=== PATIENT | female | born 1975 | race African-American/Black ===

== ENCOUNTER → 2016-06-16 | Outpatient (CLI) | payer BC, MEDICARE ==
[2016-06-16 10:07] LABS: Basophils # (A) 0.1 k/uL (0-0.2); Basophils % (A) 1 %; CH 30.4; CHCM 33.8; Eosinophils # (A) 0.1 k/uL (0-0.7); Eosinophils % (A) 2 %; HCT 39.9 % (34.0-46.0); HDW 2.65; HGB 13.5 gm/dL (11.4-16.0); Luc # (Auto) 0.29; Luc % (Auto) 4; Lymphocytes # (A) 3.9 k/uL (1.0-4.8); Lymphocytes % (A) 51 %; MCH 30.6 pg (25.0-35.0); MCHC 33.8 g/dL (31.0-37.0); MCV 90.5 fL (80.0-100.0); Mean Platelet Volume 6.7; Monocytes # (A) 0.4 k/uL (0-1.0); Monocytes % (A) 5 %; Neutrophils # (A) 2.9 k/uL (1.3-7.7); Neutrophils % (A) 38 %; RBC 4.41 m/uL (3.80-5.40); RDW 14.7 % (11.5-15.5); WBC 7.6 k/uL (3.8-10.6); WBC (Perox) 8.07
[2016-06-16 10:19] LABS: ALT 22 U/L (9-52); AST 19 U/L (14-36); Alkaline Phosphatase 53 U/L (38-126); Anion Gap 12 mmol/L; Blood Urea Nitrogen 11 mg/dL (7-17); C Reactive Protein 9.5 mg/L (<10.0); Calcium 9.5 mg/dL (8.4-10.2); Carbon Dioxide 28 mmol/L (22-30); Chloride 103 mmol/L (98-107); Cholesterol 171 mg/dL (<200); Creatine Kinase 173 U/L (30-135); Glucose 93 mg/dL (74-99); HDL Cholesterol 59 mg/dL (40-60); Iron 46 ug/dL (37-170); Non-African American GFR(MDRD) >60 (>60 ml/min/1.73 sqM); Potassium 4.1 mmol/L (3.5-5.1); Sodium 143 mmol/L (137-145); Total Bilirubin 0.3 mg/dL (0.2-1.3); Total Protein 7.4 g/dL (6.3-8.2); Triglycerides 76 mg/dL (<150); Uric Acid 5.4 mg/dL (3.7-7.4)
[2016-06-16 10:26] LABS: % Iron Saturation 11.7 % (20-50); Total Iron Binding Capacity 393 ug/dL (265-497)
[2016-06-16 11:33] LABS: Reactive Lymphocytes Present
[2016-06-16 12:22] LABS: Erythrocyte Sedimentation Rate 12 mm/hr (0-20)
[2016-06-16 12:30] LABS: Hemoglobin A1C 6.3 % (4.2-6.1)
== END | disposition home or self-care (01) ==
LOC: LABWHC1 09:22
DX: K50.00 Crohn's disease of small intestine without complications (principal); E55.9 Vitamin D deficiency, unspecified; I10 Essential (primary) hypertension; E78.00 Pure hypercholesterolemia, unspecified
CPT/HCPCS: 36415; 80053; 80061; 82306; 82550; 82728; 83036; 83540; 83550; 84439; 84443; 84550; 85025; 85652; 86140

== ENCOUNTER → 2016-10-25 | Outpatient (CLI) | payer MEDICARE, BC ==
[2016-10-25 13:37] LABS: Hemoglobin A1C 6.3 % (4.2-6.1)
== END | disposition home or self-care (01) ==
LOC: LABWHC1 11:53
PROVIDERS: ATTEND Psychiatry & Neurology Psychiatry
DX: E55.9 Vitamin D deficiency, unspecified (principal); E11.9 Type 2 diabetes mellitus without complications
CPT/HCPCS: 36415; 82306; 83036

== ENCOUNTER → 2016-11-07 | Outpatient (CLI) | payer MEDICARE, BC ==
--- NOTE | 2016-11-07 13:33 | XR ---
EXAMINATION TYPE: XR thoracic spine complete DATE OF EXAM: 11/07/2016 COMPARISON: NONE HISTORY: Pain Alignment is anatomic. There is no compression deformities. Mild disc space narrowing and hypertroph ic changes are seen.. IMPRESSION: 1. Multilevel mild degenerative disc disease. Consider follow-up MRI.
== END ==
LOC: RAD 13:04
PROVIDERS: ATTEND Internal Medicine
DX: M51.34 Other intervertebral disc degeneration, thoracic region (principal)
CPT/HCPCS: 72072

== ENCOUNTER → 2016-11-30 | Outpatient (CLI) | payer MEDICARE, BC ==
--- NOTE | 2016-11-30 17:25 | MR ---
EXAMINATION TYPE: MR thoracic spine wo con DATE OF EXAM: 11/30/2016 COMPARISON: NONE HISTORY: 41-year-old female with pain, disc degeneration thoracic spine. COMPARISON: Radiographs 11/07/2016. TECHNIQUE: Multiplanar, multisequence images of the thoracic spine were acquired. FINDINGS: Vertebral body heights are preserved and alignment is maintained. No suspicious bone marrow replaceme nt. There is relatively maintained hydration of the intervertebral discs. Very minimal disc bulging may be present such as eccentrically to the left posteriorly at T6-T7 and posteriorly at T11-T12. No larg e focal disc herniation or significant spinal canal stenosis. Scattered mild facet arthropathy is present. This contributes to moderate right neural foraminal sten osis at T11-T12 and mild on the left at T10-T11. Normal course, caliber, and signal intensity of the thoracic cord. Conus medullaris is normal. Small 7 mm T2 hyperintense nodule right lobe of the thyroid gland. No prevertebral or paravertebral soft tissue abnormality seen. IMPRESSION: 1. No vertebral compression collapse or malalignment. 2. Mild facet arthropathy lower thoracic spine. This appears to cause a moderate right neuroforaminal stenosis at T11-T12 and mild on the left at T10-T11. 3. No focal disc herniation or significant spinal canal stenosis.
== END | disposition home or self-care (01) ==
LOC: RADMRIMAIN 15:32
PROVIDERS: ATTEND Internal Medicine
DX: M46.84 Other specified inflammatory spondylopathies, thoracic region (principal)
CPT/HCPCS: 72146

== ENCOUNTER → 2017-01-23 | Outpatient (CLI) | payer BC, MEDICARE, OTHER ==
--- NOTE | 2017-01-25 08:03 | MM ---
Reason for exam: screening (asymptomatic). Last mammogram was performed 1 year and 1 month ago. History: Benign excisional biopsy of the left breast, 1997. Taking hormonal contraceptives for 20 years beginning at age 15. Physical Findings: A clinical breast exam by your physician is recommended on an annual basis and results should be correlated with mammographic findings. MG Screening Mammo w CAD Bilateral CC and MLO view(s) were taken. Prior study comparison: December 29, 2015, bilateral MG 3d screening mammo w/cad. There are scattered fibroglandular densities. No significant changes when compared with prior studies. ASSESSMENT: Negative, BI-RAD 1 RECOMMENDATION: Routine screening mammogram of both breasts in 1 year.
== END | disposition home or self-care (01) ==
LOC: RADMAMWWP 16:51
PROVIDERS: ATTEND Obstetrics & Gynecology
DX: Z12.31 Encounter for screening mammogram for malignant neoplasm of breast (principal)

== ENCOUNTER → 2017-04-03 | Outpatient (CLI) | payer BC, MEDICARE ==
--- NOTE | 2017-04-03 12:08 | XR ---
Left shoulder HISTORY: Left shoulder pain 3 views of the left shoulder There is a distal acromial spur. Hypertrophic change present at the acromioclavicular joint. Left tramaine g apex as visualized is normal. Alignment, bone mineralization are within normal limits. No fracture or dislocation. Mild spurring present at the inferior glenohumeral joint. Small ossific density could represent a loose body measuring 1 mm this level. IMPRESSION: Correlate for impingement. Osteoarthritis and additional findings above.
== END | disposition home or self-care (01) ==
LOC: RADXRMAIN 09:58
PROVIDERS: ATTEND Psychiatry & Neurology Neurology
DX: M19.012 Primary osteoarthritis, left shoulder (principal)

== ENCOUNTER → 2017-06-20 | Outpatient (CLI) | payer BC, MEDICARE ==
[2017-06-20 12:41] LABS: Basophils # (A) 0.1 k/uL (0-0.2); Basophils % (A) 1 %; Eosinophils # (A) 0.2 k/uL (0-0.7); Eosinophils % (A) 3 %; HCT 42.7 % (34.0-46.0); Lymphocytes # (A) 4.1 k/uL (1.0-4.8); Lymphocytes % (A) 46 %; MCH 29.8 pg (25.0-35.0); MCHC 32.8 g/dL (31.0-37.0); MCV 90.9 fL (80.0-100.0); Mean Platelet Volume 6.9; Monocytes # (A) 0.7 k/uL (0-1.0); Monocytes % (A) 7 %; Neutrophils # (A) 3.7 k/uL (1.3-7.7); Neutrophils % (A) 42 %; Platelet Count 303 k/uL (150-450); RDW 14.8 % (11.5-15.5)
[2017-06-20 12:55] LABS: Albumin 4.4 g/dL (3.5-5.0); Calcium 9.9 mg/dL (8.4-10.2); Potassium 3.9 mmol/L (3.5-5.1); Total Bilirubin 0.3 mg/dL (0.2-1.3); Total Protein 7.6 g/dL (6.3-8.2)
[2017-06-20 13:12] LABS: T4, Free (Free Thyroxine) 0.79 ng/dL (0.78-2.19)
[2017-06-20 22:32] LABS: Hemoglobin A1C 6.3 % (4.0-6.0)
== END | disposition home or self-care (01) ==
LOC: LABWHC1 12:00
DX: K50.00 Crohn's disease of small intestine without complications (principal); E03.9 Hypothyroidism, unspecified; E11.9 Type 2 diabetes mellitus without complications
CPT/HCPCS: 36415; 80053; 83036; 84439; 84443; 85025

== ENCOUNTER → 2018-01-11 | Outpatient (CLI) | payer BC, MEDICARE | END | disposition home or self-care (01) | LOC: LABWHC1 10:23 | PROVIDERS: ATTEND Obstetrics & Gynecology | DX: N91.2 Amenorrhea, unspecified (principal) | CPT/HCPCS: 36415; 82670; 83001; 83002 ==

== ENCOUNTER → 2018-01-19 | Outpatient (CLI) | payer BC, MEDICARE ==
[2018-01-19 12:14] LABS: Basophils % (A) 0 %; Eosinophils # (A) 0.1 k/uL (0-0.7); Eosinophils % (A) 2 %; HCT 40.7 % (34.0-46.0); HGB 13.5 gm/dL (11.4-16.0); Lymphocytes # (A) 3.3 k/uL (1.0-4.8); Lymphocytes % (A) 54 %; MCH 30.2 pg (25.0-35.0); MCHC 33.1 g/dL (31.0-37.0); MCV 91.1 fL (80.0-100.0); Mean Platelet Volume 6.5; Monocytes # (A) 0.3 k/uL (0-1.0); Monocytes % (A) 5 %; Neutrophils # (A) 2.2 k/uL (1.3-7.7); Neutrophils % (A) 36 %; Platelet Count 292 k/uL (150-450); RBC 4.47 m/uL (3.80-5.40); RDW 14.6 % (11.5-15.5); WBC 6.1 k/uL (3.8-10.6)
[2018-01-19 12:46] LABS: Appearance,Urine Clear (Clear); Bilirubin,Urine Negative (Negative); Blood,Urine Small (Negative); Color,Urine Yellow; Glucose,Urine (UA) Negative (Negative); Ketones,Urine Negative (Negative); Leukocyte Esterase,Urine Negative (Negative); Mucus,Urine Rare /hpf; Nitrite,Urine Negative (Negative); Protein,Urine Negative (Negative); RBC,Urine 6 /hpf (0-5); Specific Gravity,Urine 1.016 (1.001-1.035); Squamous Epithelial Cell,Urine 2 /hpf (0-4); Urobilinogen,Urine <2.0 mg/dL (<2.0); WBC,Urine 1 /hpf (0-5)
[2018-01-19 19:10] LABS: Iron Saturation 28.57 (12.00-45.00)
[2018-01-19 19:19] LABS: Vitamin D 25 Hydroxy 18.3 ng/mL (30.0-100.0)
[2018-01-19 19:21] LABS: Albumin 4.4 g/dL (3.80-4.90); Albumin/Globulin Ratio 1.69 (1.20-2.10); Anion Gap 7.7 mmol/L (4.00-12.00); Calcium 9.4 mg/dL (8.7-10.3); Carbon Dioxide 26.3 mmol/L (21.6-31.8); Globulin 2.6 g/dL (2.1-3.7); LDL Cholesterol,Calculated 100.4 mg/dL (0.0-131.0); Potassium 3.8 mmol/L (3.5-5.5); Total Bilirubin 0.4 mg/dL (0.3-1.2); Uric Acid 5.6 mg/dL (2.9-7.7); VLDL Calculation 14.6 mg/dL (5.00-40.00)
[2018-01-19 19:29] LABS: T4, Free (Free Thyroxine) 1.1 ng/dL (0.80-1.80)
[2018-01-19 22:43] LABS: Hemoglobin A1C 6.3 % (4.0-6.0)
== END | disposition home or self-care (01) ==
LOC: LABWHC1 11:08
PROVIDERS: ATTEND Internal Medicine
DX: Z00.00 Encounter for general adult medical examination without abnormal findings (principal); E55.9 Vitamin D deficiency, unspecified; I10 Essential (primary) hypertension; E78.00 Pure hypercholesterolemia, unspecified; K50.90 Crohn's disease, unspecified, without complications
CPT/HCPCS: 36415; 80053; 80061; 81001; 82306; 82550; 82728; 83036; 83540; 83550; 83735; 84439; 84443; 84550; 85025

== ENCOUNTER → 2018-02-28 | Outpatient (CLI) | payer OTHER, MEDICARE ==
[2018-02-28 15:21] LABS: Erythrocyte Sedimentation Rate 11 mm/hr (0-20)
[2018-02-28 15:25] LABS: HCT 39.5 % (34.0-46.0); MCH 30.4 pg (25.0-35.0); MCV 92.1 fL (80.0-100.0); Mean Platelet Volume 6.6; Platelet Count 297 k/uL (150-450); RBC 4.28 m/uL (3.80-5.40); RDW 14.8 % (11.5-15.5); WBC 8.8 k/uL (3.8-10.6)
[2018-02-28 19:33] LABS: Vitamin D 25 Hydroxy 28.4 ng/mL (30.0-100.0)
[2018-02-28 19:39] LABS: Albumin 4.4 g/dL (3.80-4.90); Albumin/Globulin Ratio 1.76 (1.20-2.10); Anion Gap 10.4 mmol/L (4.00-12.00); C Reactive Protein 2.2 mg/dL (0.0-0.8); Calcium 9.5 mg/dL (8.7-10.3); Carbon Dioxide 27.6 mmol/L (21.6-31.8); Globulin 2.5 g/dL (2.1-3.7); Potassium 3.5 mmol/L (3.5-5.5); Total Bilirubin 0.4 mg/dL (0.3-1.2); Total Protein 6.9 g/dL (6.2-8.2)
== END | disposition home or self-care (01) ==
LOC: LABWHC1 13:10
DX: K50.00 Crohn's disease of small intestine without complications (principal)
CPT/HCPCS: 36415; 80053; 82306; 82607; 85027; 85652; 86140

== ENCOUNTER → 2018-04-17 | Outpatient (CLI) | payer BC, MEDICARE ==
[2018-04-17 20:10] LABS: Hemoglobin A1C 6.3 % (4.0-6.0)
== END | disposition home or self-care (01) ==
LOC: LABWHC1 11:03
PROVIDERS: ATTEND Psychiatry & Neurology Psychiatry
DX: E11.9 Type 2 diabetes mellitus without complications (principal)
CPT/HCPCS: 36415; 83036

== ENCOUNTER → 2018-07-24 | Outpatient (CLI) | payer BC, MEDICARE ==
--- NOTE | 2018-07-24 12:56 | XR ---
EXAMINATION TYPE: AP view pelvis and 2 views right hip DATE OF EXAM: 07/24/2018 COMPARISON: NONE HISTORY: 43-year-old female right hip pain for 2 weeks FINDINGS: AP view of the pelvis suggests a small crossover sign along the superior aspect of the right acetabul um. Bilateral hip joint spaces are relatively maintained. On the right, there is some degenerative la bral ossification versus os acetabulum demonstrated. No acute fracture, subluxation, or dislocation. Pelvic fluid was. IMPRESSION: Subtle crossover sign superior right acetabulum and either degenerative labral ossification versus os acetabulum on the right. Correlate for potential symptoms of femoral acetabular impingement syndrome . Overall joint space is maintained. No acute osseous abnormality seen.
== END | disposition home or self-care (01) ==
LOC: RADXRMAIN 12:07
PROVIDERS: ATTEND Physician Assistant
DX: M25.551 Pain in right hip (principal)
CPT/HCPCS: 73502

== ENCOUNTER → 2018-08-13 | Outpatient (CLI) | payer BC, MEDICARE ==
--- NOTE | 2018-08-13 10:44 | FL ---
EXAMINATION TYPE: FL barium swallow DATE OF EXAM: 08/13/2018 CLINICAL HISTORY: Dysphagia TECHNIQUE: A double contrast esophagram is performed utilizing air and barium. A total of 1 minute and 42 seconds of fluoroscopic time was utilized during procedure. 43 fluoroscopic images were saved. COMPARISON: None FINDINGS: The esophagus shows normal motility and emptying into the stomach in the upright position w ith slight delay within the distal esophagus just on supine imaging. No evidence of hiatal hernia or stricture noted. There is moderate to severe gastroesophageal reflux was seen during real time perfo rmance of this study on the supine position only extending just inferior to the clavicular margin. Sm all distal esophageal diverticulum and small cricopharyngeal bar are both incidentally seen. IMPRESSION: 1. Moderate to severe gastroesophageal reflux in the supine position only. 2. Note is made of a small cricopharyngeal bar. 3. Small distal esophageal diverticulum.
== END | disposition home or self-care (01) ==
LOC: RADUSWWP 09:54
PROVIDERS: ATTEND Internal Medicine
DX: K21.9 Gastro-esophageal reflux disease without esophagitis (principal); Q39.6 Congenital diverticulum of esophagus; R93.3 Abnormal findings on diagnostic imaging of other parts of digestive tract
CPT/HCPCS: 74220

== ENCOUNTER → 2018-09-17 | Outpatient (CLI) | payer BC, MEDICARE ==
[2018-09-17 12:16] LABS: Anisocytosis Slight; HCT 37.4 % (34.0-46.0); MCH 29.5 pg (25.0-35.0); MCHC 32.1 g/dL (31.0-37.0); MCV 91.8 fL (80.0-100.0); Mean Platelet Volume 7.4; Platelet Count 300 k/uL (150-450); RBC 4.07 m/uL (3.80-5.40); RDW 16.2 % (11.5-15.5); WBC 6.9 k/uL (3.8-10.6)
[2018-09-17 14:10] LABS: Erythrocyte Sedimentation Rate 10 mm/hr (0-20)
[2018-09-17 15:46] LABS: Vitamin D 25 Hydroxy 22.8 ng/mL (30.0-100.0)
[2018-09-17 17:36] LABS: African American GFR (CKD) 90.1 (60.0-200.0); Albumin/Globulin Ratio 1.74 (1.60-3.17); Anion Gap 4.5 mmol/L (4.00-12.00); BUN/Creat Ratio 8.89 Ratio (12.00-20.00); C Reactive Protein 0.7 mg/dL (0.0-0.8); Calcium 9.1 mg/dL (8.7-10.3); Carbon Dioxide 24.5 mmol/L (21.6-31.8); Globulin 2.3 g/dL (1.6-3.3); Potassium 4.3 mmol/L (3.5-5.5); Total Bilirubin 0.3 mg/dL (0.3-1.2); Total Protein 6.3 g/dL (6.2-8.2)
== END | disposition home or self-care (01) ==
LOC: LABWHC1 11:35
DX: K50.90 Crohn's disease, unspecified, without complications (principal)
CPT/HCPCS: 36415; 80053; 82306; 82607; 85027; 85652; 86140

== ENCOUNTER 2018-10-30 01:18 | Emergency (ER) | payer BC, MEDICARE ==
[2018-10-30 01:36] VITALS: BP 114/70; PULSE 87; RESP 16; TEMP 98.6
[2018-10-30 01:59] LABS: Basophils # (A) 0.1 k/uL (0-0.2); Basophils % (A) 0 %; Eosinophils # (A) 0.2 k/uL (0-0.7); Eosinophils % (A) 2 %; HCT 37.2 % (34.0-46.0); HGB 12.4 gm/dL (11.4-16.0); Lymphocytes # (A) 4.8 k/uL (1.0-4.8); Lymphocytes % (A) 34 %; MCH 29.5 pg (25.0-35.0); MCHC 33.2 g/dL (31.0-37.0); MCV 88.7 fL (80.0-100.0); Mean Platelet Volume 6.7; Monocytes # (A) 0.8 k/uL (0-1.0); Monocytes % (A) 6 %; Neutrophils # (A) 7.9 k/uL (1.3-7.7); Neutrophils % (A) 57 %; Platelet Count 288 k/uL (150-450); RBC 4.19 m/uL (3.80-5.40); WBC 13.9 k/uL (3.8-10.6)
[2018-10-30 02:09] LABS: Albumin 4.3 g/dL (3.5-5.0); Calcium 9.7 mg/dL (8.4-10.2); Magnesium 2.2 mg/dL (1.6-2.3); Potassium 3.5 mmol/L (3.5-5.1); Total Bilirubin 0.2 mg/dL (0.2-1.3); Total Protein 7.5 g/dL (6.3-8.2)
[2018-10-30] MEDS ORDERED: DIAZEPAM 5 MG/ML 2 ML INJ IVP STA (02:36)
[2018-10-30] MEDS ORDERED: POTASSIUM CHLORIDE ER 20 MEQ TAB.ER PO STA (02:37)
[2018-10-30 03:44] LABS: Appearance,Urine Cloudy (Clear); Bilirubin,Urine Negative (Negative); Blood,Urine Moderate (Negative); Color,Urine Yellow; Glucose,Urine (UA) Negative (Negative); Hyaline Casts,Urine 13 /lpf (0-2); Ketones,Urine Negative (Negative); Leukocyte Esterase,Urine Moderate (Negative); Mucus,Urine Many /hpf; Nitrite,Urine Negative (Negative); Protein,Urine 1+ (Negative); RBC,Urine 16 /hpf (0-5); Specific Gravity,Urine 1.034 (1.001-1.035); Squamous Epithelial Cell,Urine 23 /hpf (0-4); WBC,Urine 15 /hpf (0-5)
--- NOTE | 2018-10-30 04:05 | ED ---
Lower Extremity Injury HPI - General Chief Complaint: Extremity Injury, Lower Stated Complaint: Leg Pain Time Seen by Provider: 10/30/18 01:44 Source: patient Mode of arrival: ambulatory Limitations: no limitations - History of Present Illness Initial Comments: This patient is a 43-year-old woman who presents to be evaluated for pain that radiates down the right leg toward her foot. Patient states that it feels like a burning or spasming. She states it is been going on for 3-4 days now when she was seen at [facility]. She had some tests run there and was told that her potassium was low and that she was having spasms to that. She was given some medications there was feeling a little bit better but the pains continued. She states it feels like she needs to move her legs. She indicates pain from the upper leg down towards the bottom part and into the foot. She did not have any identifiable injury. No weakness or numbness. No change in bladder or bowel function MD Complaint: other (Leg.) Onset/Timin -: days(s) Place: home Severity: moderate Improves With: other Worsens With: nothing - Related Data Home Medications Medication Instructions Recorded Confirmed Fluticasone Propionate [Flonase] 2 spray PO BID PRN 07/15/13 08/17/15 Hydrochlorothiazide [Hydrodiuril] 25 mg PO DAILY 07/15/13 08/17/15 Loratadine [Claritin] 10 mg PO DAILY 07/15/13 08/17/15 fluvoxaMINE MALEATE [Luvox Cr] 25 mg PO DAILY 07/15/13 08/17/15 Alesse 1 tab PO DAILY 08/12/15 08/17/15 Docusate [Colace] 100 mg PO DIRECTED PRN 08/12/15 08/17/15 Ferrous Sulfate [Iron (65 MG 325 mg PO DAILY 08/12/15 08/17/15 Elemental)] Methylcellulose (with Sugar) 1 applic PO DIRECTED PRN 08/12/15 08/17/15 [Citrucel Powder] Allergies Allergy/AdvReac Type Severity Reaction Status Date / Time lisinopril Allergy Swelling Verified 10/30/18 01:36 shellfish derived Allergy Itching Verified 10/30/18 01:36 ibuprofen [From Motrin IB] AdvReac Nausea Verified 10/30/18 01:36 Review of Systems ROS Statement: Those systems with pertinent positive or pertinent negative responses have been documented in the HPI. ROS Other: All systems not noted in ROS Statement are negative. Constitutional: Denies: fever, chills, weakness Respiratory: Denies: cough, dyspnea Cardiovascular: Denies: chest pain, edema Gastrointestinal: Denies: abdominal pain Musculoskeletal: Reports: as per HPI. Denies: back pain Skin: Denies: rash Neurological: Denies: headache, weakness, numbness, paresthesias Past Medical History Past Medical History: Hypertension Additional Past Medical History / Comment(s): HX CROHN'S, History of Any Multi-Drug Resistant Organisms: None Reported Past Surgical History: Section Additional Past Surgical History / Comment(s): BARBARA EYELID SX, Past Anesthesia/Blood Transfusion Reactions: No Reported Reaction Past Psychological History: Anxiety, Depression, PTSD Smoking Status: Former smoker Past Alcohol Use History: None Reported Past Drug Use History: Marijuana General Exam Limitations: no limitations General appearance: alert, in no apparent distress Head exam: Present: atraumatic, normocephalic Eye exam: Present: normal appearance. Absent: scleral icterus, conjunctival injection Neck exam: Present: normal inspection Respiratory exam: Present: normal lung sounds bilaterally. Absent: respiratory distress, wheezes, rales, rhonchi, stridor Cardiovascular Exam: Present: regular rate, normal rhythm, normal heart sounds. Absent: systolic murmur, diastolic murmur, rubs, gallop GI/Abdominal exam: Present: soft. Absent: distended, tenderness, guarding, rebound, rigid, mass Extremities exam: Present: normal inspection, normal capillary refill. Absent: pedal edema, calf tenderness Back exam: Present: normal inspection. Absent: CVA tenderness (R), CVA tenderness (L), paraspinal tenderness, vertebral tenderness Neurological exam: Present: alert. Absent: motor sensory deficit Skin exam: Present: warm, dry, intact, normal color. Absent: rash Course Vital Signs 10/30/18 01:32 Temperature 98.6 F Pulse Rate 87 Respiratory 16 Rate Blood Pressure 114/70 O2 Sat by Pulse 99 Oximetry Medical Decision Making - Medical Decision Making Patient's 43-year-old woman with pain radiating down the right leg. Suspect t hat this is more of a radiculopathy then spasm. In addition the pains do not have features suggestive of arterial insufficiency or claudication. Patient is given 1 dose of steroids here, but she does have an orthopedic surgery planned for and at this point we will hold prescribing additional steroids so that the postsurgical healing is not interfered with. Discussed appropriate further care and follow-up related patient's leg pain. - Lab Data Result diagrams: 10/30/18 01:49 10/30/18 01:49 Lab Results 10/30/18 10/30/18 10/30/18 Range/Units 01:49 01:49 01:49 WBC 13.9 H (3.8-10.6) k/uL RBC 4.19 (3.80-5.40) m/uL Hgb 12.4 (11.4-16.0) gm/dL Hct 37.2 (34.0-46.0) % MCV 88.7 (80.0-100.0) fL MCH 29.5 (25.0-35.0) pg MCHC 33.2 (31.0-37.0) g/dL RDW 15.0 (11.5-15.5) % Plt Count 288 (150-450) k/uL Neutrophils % 57 % Lymphocytes % 34 % Monocytes % 6 % Eosinophils % 2 % Basophils % 0 % Neutrophils # 7.9 H (1.3-7.7) k/uL Lymphocytes # 4.8 (1.0-4.8) k/uL Monocytes # 0.8 (0-1.0) k/uL Eosinophils # 0.2 (0-0.7) k/uL Basophils # 0.1 (0-0.2) k/uL Sodium 140 (137-145) mmol/L Potassium 3.5 (3.5-5.1) mmol/L Chloride 102 (98-107) mmol/L Carbon Dioxide 28 (22-30) mmol/L Anion Gap 10 mmol/L BUN 15 (7-17) mg/dL Creatinine 0.99 (0.52-1.04) mg/dL Est GFR (CKD-EPI)AfAm 80 (>60 ml/min/1.73 sqM) Est GFR (CKD-EPI)NonAf 70 (>60 ml/min/1.73 sqM) Glucose 126 H (74-99) mg/dL Calcium 9.7 (8.4-10.2) mg/dL Magnesium 2.2 (1.6-2.3) mg/dL Total Bilirubin 0.2 (0.2-1.3) mg/dL AST 22 (14-36) U/L ALT 16 (9-52) U/L Alkaline Phosphatase 56 (38-126) U/L Troponin I <0.012 (0.000-0.034) ng/mL Total Protein 7.5 (6.3-8.2) g/dL Albumin 4.3 (3.5-5.0) g/dL Urine Color Urine Appearance (Clear) Urine pH (5.0-8.0) Ur Specific [place] (1.001-1.035) Urine Protein (Negative) Urine Glucose (UA) (Negative) Urine Ketones (Negative) Urine Blood (Negative) Urine Nitrite (Negative) Urine Bilirubin (Negative) Urine Urobilinogen (<2.0) mg/dL Ur Leukocyte Esterase (Negative) Urine RBC (0-5) /hpf Urine WBC (0-5) /hpf Ur Squamous Epith Cells (0-4) /hpf Hyaline Casts (0-2) /lpf Urine Mucus (None) /hpf 10/30/18 Range/Units 03:17 WBC (3.8-10.6) k/uL RBC (3.80-5.40) m/uL Hgb (11.4-16.0) gm/dL Hct (34.0-46.0) % MCV (80.0-100.0) fL MCH (25.0-35.0) pg MCHC (31.0-37.0) g/dL RDW (11.5-15.5) % Plt Count (150-450) k/uL Neutrophils % % Lymphocytes % % Monocytes % % Eosinophils % % Basophils % % Neutrophils # (1.3-7.7) k/uL Lymphocytes # (1.0-4.8) k/uL Monocytes # (0-1.0) k/uL Eosinophils # (0-0.7) k/uL Basophils # (0-0.2) k/uL Sodium (137-145) mmol/L Potassium (3.5-5.1) mmol/L Chloride (98-107) mmol/L Carbon Dioxide (22-30) mmol/L Anion Gap mmol/L BUN (7-17) mg/dL Creatinine (0.52-1.04) mg/dL Est GFR (CKD-EPI)AfAm (>60 ml/min/1.73 sqM) Est GFR (CKD-EPI)NonAf (>60 ml/min/1.73 sqM) Glucose (74-99) mg/dL Calcium (8.4-10.2) mg/dL Magnesium (1.6-2.3) mg/dL Total Bilirubin (0.2-1.3) mg/dL AST (14-36) U/L ALT (9-52) U/L Alkaline Phosphatase (38-126) U/L Troponin I (0.000-0.034) ng/mL Total Protein (6.3-8.2) g/dL Albumin (3.5-5.0) g/dL Urine Color Yellow Urine Appearance Cloudy H (Clear) Urine pH 6.0 (5.0-8.0) Ur Specific [place] 1.034 (1.001-1.035) Urine Protein 1+ H (Negative) Urine Glucose (UA) Negative (Negative) Urine Ketones Negative (Negative) Urine Blood Moderate H (Negative) Urine Nitrite Negative (Negative) Urine Bilirubin Negative (Negative) Urine Urobilinogen 2.0 (<2.0) mg/dL Ur Leukocyte Esterase Moderate H (Negative) Urine RBC 16 H (0-5) /hpf Urine WBC 15 H (0-5) /hpf Ur Squamous Epith Cells 23 H (0-4) /hpf Hyaline Casts 13 H (0-2) /lpf Urine Mucus Many H (None) /hpf Disposition Clinical Impression: Sciatic nerve pain Disposition: HOME SELF-CARE Condition: Good Instructions (If sedation given, give patient instructions): Sciatica (ED) Is patient prescribed a controlled substance at d/c from ED?: No Referrals: Moses Espinosa MD [Primary Care Provider] - 1-2 days
[2018-10-30] MEDS ORDERED: methylPREDNISolone SOD SUCCI 125 MG/2 ML VIAL IV STA (04:11)
== END 2018-10-30 04:21 | disposition home or self-care (01) ==
LOC: EC 01:18
DX: M54.31 Sciatica, right side (principal); I10 Essential (primary) hypertension; F41.9 Anxiety disorder, unspecified; F32.9 Major depressive disorder, single episode, unspecified; F43.10 Post-traumatic stress disorder, unspecified; Z87.891 Personal history of nicotine dependence; Z79.899 Other long term (current) drug therapy; Z79.3 Long term (current) use of hormonal contraceptives; Z88.8 Allergy status to other drugs, medicaments and biological substances; Z91.013 Allergy to seafood; Z88.6 Allergy status to analgesic agent
CPT/HCPCS: 36415; 80053; 83735; 84484; 85025; 81001; 99283; 96374; 96375; J2930; J3360

== ENCOUNTER → 2019-03-22 | Outpatient (CLI) | payer BC, MEDICARE ==
--- NOTE | 2019-03-22 13:09 | MM ---
Reason for exam: screening (asymptomatic). Last mammogram was performed 1 year and 2 months ago. History: Benign excisional biopsy of the left breast, 1997. Taking hormonal contraceptives for 20 years beginning at age 15. Physical Findings: A clinical breast exam by your physician is recommended on an annual basis and results should be correlated with mammographic findings. MG Screening Mammo w CAD Bilateral CC and MLO view(s) were taken. Prior study comparison: January 22, 2018, bilateral MG 3d screening mammo w/cad. January 23, 2017, bilateral MG screening mammo w CAD. There are scattered fibroglandular densities. There is no discrete abnormality. ASSESSMENT: Negative, BI-RAD 1 RECOMMENDATION: Routine screening mammogram of both breasts in 1 year.
== END | disposition home or self-care (01) ==
LOC: RADMAMWWP 07:11
PROVIDERS: ATTEND Obstetrics & Gynecology
DX: Z12.31 Encounter for screening mammogram for malignant neoplasm of breast (principal)
CPT/HCPCS: 77067

== ENCOUNTER → 2019-09-23 | Outpatient (CLI) | payer BC, MEDICARE ==
[2019-09-23 10:54] LABS: Basophils # (A) 0.1 k/uL (0-0.2); Basophils % (A) 1 %; Eosinophils # (A) 0.2 k/uL (0-0.7); Eosinophils % (A) 3 %; HCT 42.2 % (34.0-46.0); HGB 13.1 gm/dL (11.4-16.0); Lymphocytes # (A) 3.4 k/uL (1.0-4.8); Lymphocytes % (A) 51 %; MCH 28.6 pg (25.0-35.0); MCHC 31.1 g/dL (31.0-37.0); MCV 91.8 fL (80.0-100.0); Mean Platelet Volume 7.1; Monocytes # (A) 0.3 k/uL (0-1.0); Monocytes % (A) 5 %; Neutrophils # (A) 2.5 k/uL (1.3-7.7); Neutrophils % (A) 38 %; Platelet Count 355 k/uL (150-450); RDW 15.4 % (11.5-15.5); WBC 6.7 k/uL (3.8-10.6)
[2019-09-23 15:30] LABS: African American GFR (CKD) 78.8 (60.0-200.0); Albumin 4.4 g/dL (3.80-4.90); Albumin/Globulin Ratio 1.57 (1.60-3.17); Anion Gap 7.4 mmol/L (4.00-12.00); Calcium 9.7 mg/dL (8.7-10.3); Carbon Dioxide 27.6 mmol/L (21.6-31.8); Chol/HDL Ratio 3.42; Globulin 2.8 g/dL (1.6-3.3); LDL Cholesterol,Calculated 92.6 mg/dL (0.0-131.0); Potassium 3.8 mmol/L (3.5-5.5); Total Bilirubin 0.3 mg/dL (0.2-1.2); Total Protein 7.2 g/dL (6.2-8.2); VLDL Calculation 11.4 mg/dL (5.00-40.00)
[2019-09-23 15:38] LABS: T4, Free (Free Thyroxine) 1.2 ng/dL (0.80-1.80)
[2019-09-23 17:29] LABS: Hemoglobin A1C 6.8 % (4.0-6.0)
== END | disposition home or self-care (01) ==
LOC: LABWHC1 10:13
PROVIDERS: ATTEND Psychiatry & Neurology Psychiatry
DX: I10 Essential (primary) hypertension (principal); E78.2 Mixed hyperlipidemia; E11.69 Type 2 diabetes mellitus with other specified complication; E03.9 Hypothyroidism, unspecified
CPT/HCPCS: 36415; 80053; 80061; 83036; 84439; 84443; 85025

== ENCOUNTER → 2019-11-22 | Outpatient (CLI) | payer BC, MEDICARE | END | disposition home or self-care (01) | LOC: RADFLMAIN 13:02 | PROVIDERS: ATTEND Orthopaedic Surgery | DX: Z53.9 Procedure and treatment not carried out, unspecified reason (principal) ==

== ENCOUNTER 2019-11-25 06:51 | Day surgery (SDC) | payer BC, MEDICARE ==
[2019-11-21 09:44] VITALS: BMI 35.3
[2019-11-25] MEDS: LACTATED RINGERS 1,000 ML IV SCH ×2 (07:20→07:33)
[2019-11-25 07:21] VITALS: RESP 16; TEMP 96.6
[2019-11-25] MEDS ORDERED: LIDOCAINE 1% (10MG/ML) FOR IV START SQ ONE (07:22)
[2019-11-25 07:31] LABS: Glucose,Whole Blood 104 mg/dL (75-99)
[2019-11-25] MEDS ORDERED: PROPOFOL 10 MG/ML 20 ML VIAL IV ONE (07:34)
--- NOTE | 2019-11-25 08:17 | P.PCN ---
Date of Procedure: 11/25/19 Description of Procedure: BRIEF HISTORY: Patient is a 44-year-old female with a medical history significant for Crohn's disease scheduled for outpatient colonoscopy for evaluation of Crohn's disease. Patient was diagnosed in 2002. Previously on Remicade therapy she has been switched to Humira in 2016 and has done well. Denies any symptoms of abdominal pain, altered bowel function or blood per rectum. Last EGD and colonoscopy in 2016. PROCEDURE PERFORMED: Colonoscopy with biopsy. PREOPERATIVE DIAGNOSIS: Crohn's disease, last colonoscopy 2015. ESTIMATED BLOOD LOSS: Minimal. IV sedation per Anesthesia. PROCEDURE: After informed consent was obtained, the patient, was brought into the endoscopy unit. IV sedation was administered by Anesthesia under continuous monitoring. Digital rectal examination was normal. Initially the Olympus CF-190 flexible video colonoscope was then inserted in the rectum, gradually advanced into the cecum without any difficulty. Careful examination was performed as the scope was gradually being withdrawn. Ileocecal valve and the appendiceal orifice were visualized and appeared normal. Prep was excellent. Mucosa of the cecum, ascending colon, transverse colon, descending colon, sigmoid colon, and rectum appeared normal, with biopsies taken of the right colon, transverse colon, left colon and rectum in the setting of Crohn's disease. The terminal ileum was also intubated and appeared normal with biopsies taken. 2 diminutive polyps measu ring 2 mm in size removed from the descending colon and rectum with cold forcep polypectomy. Retroflexion was performed in the rectum and no lesions were seen. The patient tolerated the procedure well. IMPRESSION: Normal-appearing colon from rectum to cecum and normal-appearing terminal ileum, with random biopsies taken of the rectum, left colon, transverse colon, right colon and terminal ileum in the setting of Crohn's disease. Diminutive polyps removed from the descending colon and rectum with cold forcep polypectomy. RECOMMENDATIONS: Findings of this examination were discussed with the patient and her . Okay to resume diet. Okay to resume medications. Await pathology from biopsies and polypectomy. Follow-up in clinic as scheduled. Recommend repeat colonoscopy in 2 years for history of Crohn's disease.
[2019-11-25 08:32] VITALS: BP 123/86; PULSE 67
== END 2019-11-25 09:00 | disposition home or self-care (01) ==
LOC: ORWHC2ENDO 06:51
PROVIDERS: ATTEND Internal Medicine
DX: K63.5 Polyp of colon (principal); K62.1 Rectal polyp; K57.30 Diverticulosis of large intestine without perforation or abscess without bleeding; K50.90 Crohn's disease, unspecified, without complications; I10 Essential (primary) hypertension; E11.9 Type 2 diabetes mellitus without complications; K21.9 Gastro-esophageal reflux disease without esophagitis; Z79.84 Long term (current) use of oral hypoglycemic drugs; Z79.899 Other long term (current) drug therapy; Z88.5 Allergy status to narcotic agent; Z88.8 Allergy status to other drugs, medicaments and biological substances; Z91.013 Allergy to seafood; Z87.891 Personal history of nicotine dependence; Z98.890 Other specified postprocedural states
CPT/HCPCS: 81025; 88305; 45380; J2704

== ENCOUNTER → 2019-12-24 | Outpatient (CLI) | payer BC, MEDICARE ==
--- NOTE | 2019-12-24 21:53 | FL ---
Fluoroscopy INDICATION: Pain, decrease range of motion TECHNIQUE: The procedure was explained to the patient, the risks complications and benefits. All ques tions were answered. Written and verbal informed consent was obtained. A timeout was performed. On the left shoulder was localized. The skin was cleansed with Betadine. Skin and deeper tissue was a nesthetized with 1% lidocaine. Under fluoroscopic observation a 22-gauge spinal needle was advanced i nto the joint space. Contrast was placed into the joint space for the arthrogram. There was free flow of contrast within the joint space. The stylette was replaced and the needle withdrawn. Discharge in structions were discussed with the patient. The patient was transferred to MRI for additional evaluat ion. The patient tolerated procedure very well. FINDINGS: Fluoroscopy time: 50 seconds. Images obtained: 2 There is free flow of contrast about the joint space. Additional evaluation will be performed with MR I. IMPRESSIONS: 1. Left shoulder arthrogram for MRI evaluation
--- NOTE | 2019-12-25 16:49 | MR ---
EXAMINATION TYPE: MR shoulder LT w con DATE OF EXAM: 12/24/2019 COMPARISON: Arthrogram HISTORY: Left shoulder pain TECHNIQUE: Multiplanar, multisequence images of the left shoulder is performed with 1 mL intravenous Gadavist gadolinium contrast. FINDINGS: Rotator Cuff: Rotator cuff tendons appear intact. No extravasation of contrast through a rotator cuff tendon is identified. No significant fluid within the subacromial bursa or subdeltoid bursa is evide nt. Joint spaces distended with the arthrogram contrast. No tendon or muscle retraction is evident. N o muscle atrophy is evident. Acromioclavicular Joint: Intact. No significant hypertrophy appreciated. Glenohumeral Joint: Glenohumeral ligaments are poorly visualized. There is thinning of the articular cartilage with little cartilage identified on the glenoid Labrum: There appears to be increased signal within the blunted superior glenoid labrum. The anterior glenoid labrum is poorly visualized. Biceps Tendon: Fluid surrounds the long head of the biceps tendon. Horizontal portion is not well-vis ualized. The long head of biceps is in normal location within bicipital groove. This appears diminuti ve. Bone marrow signal: Subchondral cyst is within the posterior superior humeral head. The patient's fix ation screw within the inferior anterior humeral head. Other: No additional significant abnormality is appreciated. IMPRESSION: 1. No recurrent rotator cuff tear. 2. Osteoarthritic degenerative change at the glenohumeral junction. 3. Moderate tendinosis of the long head of the biceps tendon.
== END | disposition home or self-care (01) ==
LOC: RADFLMAIN 12:54
PROVIDERS: ATTEND Orthopaedic Surgery
DX: M19.012 Primary osteoarthritis, left shoulder (principal); M75.22 Bicipital tendinitis, left shoulder; M25.512 Pain in left shoulder
CPT/HCPCS: 23350; 73040; 73222; A9585; Q9967

== ENCOUNTER → 2020-01-29 | Outpatient (CLI) | payer BC, MEDICARE ==
[2020-01-29 19:20] LABS: Hemoglobin A1C 6.3 % (4.0-6.0)
== END | disposition home or self-care (01) ==
LOC: LABWHC1 12:48
PROVIDERS: ATTEND Psychiatry & Neurology Psychiatry
DX: E11.9 Type 2 diabetes mellitus without complications (principal)
CPT/HCPCS: 36415; 83036

== ENCOUNTER → 2020-11-25 | Outpatient (CLI) | payer OTHER, MEDICARE ==
[2020-11-25 18:10] LABS: DNA Double-Stranded NEGATIVE (NEGATIVE); Scleroderma SC-70 Ab <0.2 AI
[2020-11-25 23:35] LABS: Luteinizing Hormone 0.8 mIU/mL
[2020-11-25 23:43] LABS: Follicle Stimulating Hormone 4.6 mIU/mL
[2020-11-26 00:07] LABS: Estradiol <11.8 pg/mL
== END | disposition home or self-care (01) ==
LOC: LABWHC1 08:46
PROVIDERS: ATTEND Obstetrics & Gynecology
DX: N91.2 Amenorrhea, unspecified (principal); R76.0 Raised antibody titer
CPT/HCPCS: 36415; 82670; 83001; 83002; 83516; 86225; 86235

== ENCOUNTER → 2020-12-11 | Outpatient (CLI) | payer BC, MEDICARE ==
--- NOTE | 2020-12-12 04:18 | MR ---
EXAMINATION TYPE: MR shoulder LT wo con DATE OF EXAM: 12/11/2020 COMPARISON: 12/24/2019 HISTORY: Chronic pain in Left Shoulder. Prior surgery Multiplanar multiecho imaging of the left shoulder without contrast. There is patchy abnormal increased signal on the T2 images in the large area of the greater tuberosit y of the humerus. I see no definite fracture line. There is some metal linear artifact in the inferio r aspect of the humeral head. There is no retraction of the supraspinatus tendon. There is some deformity of the anterior and posterior glenoid timo. The AC joint appears intact. The re is no significant subacromial impingement. There is significant atrophy of the supraspinatus muscl e. There is no retraction of the supraspinatus tendon. The infraspinatus muscle appears intact. Subsc apularis tendon appears intact. There is increased signal in the glenoid on the T2 images. IMPRESSION: Deformity of the glenoid timo consistent with labral tears which appear not significantly different than last exam. Previous surgery. There appears to be a repair of the supraspinatus tendon at the greater tuberosity of the humerus compared to old exam. There is significant atrophy of the supraspinatus muscle which i s a change compared to old exam. There is increased edema in the humeral head at the greater tuberosi ty compared to old exam. There is also mild edema in the glenoid which is increased compared to old e xam.
== END | disposition home or self-care (01) ==
LOC: RADMRIMAIN 18:36
PROVIDERS: ATTEND Family Medicine
DX: M62.512 Muscle wasting and atrophy, not elsewhere classified, left shoulder (principal); M24.112 Other articular cartilage disorders, left shoulder

== ENCOUNTER → 2021-06-10 | Outpatient (CLI) | payer BC, MEDICARE ==
--- NOTE | 2021-06-11 14:54 | MM ---
Reason for exam: screening (asymptomatic). Last mammogram was performed 2 years and 3 months ago. History: Benign excisional biopsy of the left breast, 1997. Taking hormonal contraceptives for 20 years beginning at age 15. Physical Findings: A clinical breast exam by your physician is recommended on an annual basis and results should be correlated with mammographic findings. MG Screening Mammo w CAD Bilateral CC and MLO view(s) were taken. Prior study comparison: March 22, 2019, bilateral MG screening mammo w CAD. January 22, 2018, bilateral MG 3d screening mammo w/cad. There are scattered fibroglandular densities. No significant changes when compared with prior studies. ASSESSMENT: Benign, BI-RAD 2 RECOMMENDATION: Routine screening mammogram of both breasts in 1 year.
== END | disposition home or self-care (01) ==
LOC: RADMAMWWP 13:16
PROVIDERS: ATTEND Obstetrics & Gynecology
DX: Z12.31 Encounter for screening mammogram for malignant neoplasm of breast (principal)
CPT/HCPCS: 77067

== ENCOUNTER → 2021-11-30 | Outpatient (CLI) | payer BC, MEDICARE ==
[2021-11-30 15:45] LABS: Basophils # (A) 0.03 X 10*3/uL (0.00-0.10); Basophils % (A) 0.4 %; Eosinophils # (A) 0.17 X 10*3/uL (0.04-0.35); Eosinophils % (A) 2.5 %; HCT 36.9 % (37.2-46.3); HGB 12.4 g/dL (12.0-15.0); Immature Grans, Automated 0.3 %; Lymphocytes # (A) 3.24 X 10*3/uL (0.90-5.00); Lymphocytes % (A) 46.8 %; MCH 30.4 pg (27.0-32.0); MCHC 33.6 g/dL (32.0-37.0); MCV 90.4 fL (80.0-97.0); Mean Platelet Volume 10.2 fL (9.5-12.2); Monocytes # (A) 0.51 X 10*3/uL (0.20-1.00); Monocytes % (A) 7.4 %; NRBC Per 100 WBC 0 /100 WBCS (0.0-0.0); Neutrophils # (A) 2.95 X 10*3/uL (1.80-7.70); Neutrophils % (A) 42.6 %; Platelet Count 312 X 10*3/uL (140-440); RBC 4.08 X 10*6/uL (4.10-5.20); RDW 14.1 % (11.5-14.5); WBC 6.92 X 10*3/uL (4.50-10.00)
[2021-11-30 17:56] LABS: ALT 10 U/L (8-44); AST 14 U/L (13-35); African American GFR (CKD) 82.5 (60.0-200.0); Albumin 4.2 g/dL (3.8-4.9); Albumin/Globulin Ratio 1.55 (1.60-3.17); Alkaline Phosphatase 57 U/L (41-126); BUN/Creat Ratio 12.18 Ratio (12.00-20.00); Blood Urea Nitrogen 11.6 mg/dL (9.0-27.0); Calcium 9.4 mg/dL (8.7-10.3); Carbon Dioxide 25.1 mmol/L (20.0-27.5); Chloride 103 mmol/L (96-109); Chol/HDL Ratio 2.65 Ratio; Creatine Kinase 92 U/L (26-186); Globulin 2.7 g/dL (1.6-3.3); Glucose 104 mg/dL (70-110); LDL Cholesterol,Calculated 60.5 mg/dL (0.0-131.0); Non-African American GFR(CKD) 71.1 (60.0-200.0); Potassium 3.6 mmol/L (3.5-5.5); Sodium 141 mmol/L (135-145); Total Bilirubin <0.15 mg/dL (0.30-1.20); Total Protein 6.9 g/dL (6.2-8.2); VLDL Calculation 12.28 mg/dL (5.00-40.00)
[2021-11-30 18:26] LABS: Erythrocyte Sedimentation Rate 23 mm/Hr (0-20)
== END | disposition home or self-care (01) ==
LOC: LABWHC1 08:51
PROVIDERS: ATTEND Internal Medicine Gastroenterology
DX: Z01.812 Encounter for preprocedural laboratory examination (principal); E11.9 Type 2 diabetes mellitus without complications; E78.2 Mixed hyperlipidemia; M12.9 Arthropathy, unspecified; M54.42 Lumbago with sciatica, left side; K50.80 Crohn's disease of both small and large intestine without complications; G44.209 Tension-type headache, unspecified, not intractable; R53.82 Chronic fatigue, unspecified
CPT/HCPCS: 36415; 80053; 80061; 82043; 82550; 82570; 82607; 83036; 84439; 84443; 84550; 85025; 85652

== ENCOUNTER → 2021-12-13 | Outpatient (CLI) | payer BC, MEDICARE ==
--- NOTE | 2021-12-13 12:57 | XR ---
EXAMINATION TYPE: XR chest 2V DATE OF EXAM: 12/13/2021 COMPARISON: NONE TECHNIQUE: PA and lateral views submitted. HISTORY: Left shoulder pain FINDINGS: The lungs are clear and there is no pneumothorax, pleural effusion, or focal pneumonia. Bilateral A C joint arthropathy. Heart size normal with no overt failure. IMPRESSION: 1. No acute process.
--- NOTE | 2021-12-13 13:16 | CT ---
EXAMINATION TYPE: CT shoulder LT wo con DATE OF EXAM: 12/13/2021 COMPARISON: MRI left shoulder December 11, 2020 and older MRIs. HISTORY: LEFT SHOULDER PAIN and primary osteoarthritis. CT DLP: 335 mGycm Automated exposure control for dose reduction was used. FINDINGS: [id number] narrowing and mild spurring involving the posterior aspect of the acromioclavicular joint. Mild to moderate capsular hypertrophy with loss of underlying fat plane redemonstrated. Correl ate for underlying impingement. Glenohumeral joint shows moderate narrowing with some spurring from the inferior medial aspect of the humeral head. No significant joint effusion. There is subchondral cystic change in the superolateral humeral head redemonstrated with adjacent bony projection laterally extending posteriorly. Subchondr al cyst in the anterior osseous glenoid on axial image 66 is redemonstrated. No abnormal glenoid vers ion. Moderate muscular atrophy of the supraspinatus muscle bulk remains present. Visualized ribs are intac t. Visualized left lung is clear. IMPRESSION: As above.
== END | disposition home or self-care (01) ==
LOC: RADCTMAIN 12:16
PROVIDERS: ATTEND Orthopaedic Surgery
DX: M19.012 Primary osteoarthritis, left shoulder (principal)
CPT/HCPCS: 71046

== ENCOUNTER → 2022-05-30 | Outpatient (CLI) | payer OTHER, MEDICARE ==
[2022-05-30 18:20] LABS: Basophils # (A) 0.07 X 10*3/uL (0.00-0.10); Basophils % (A) 0.7 %; Eosinophils # (A) 0.56 X 10*3/uL (0.04-0.35); HCT 41.7 % (37.2-46.3); HGB 13.7 g/dL (12.0-15.0); Immature Grans, Automated 0.5 %; Lymphocytes # (A) 4.57 X 10*3/uL (0.90-5.00); Lymphocytes % (A) 48.7 %; MCH 29.7 pg (27.0-32.0); MCHC 32.9 g/dL (32.0-37.0); MCV 90.3 fL (80.0-97.0); Mean Platelet Volume 10.4 fL (9.5-12.2); Monocytes # (A) 0.57 X 10*3/uL (0.20-1.00); Monocytes % (A) 6.1 %; NRBC Per 100 WBC 0 /100 WBCS (0.0-0.0); Neutrophils # (A) 3.56 X 10*3/uL (1.80-7.70); Platelet Count 367 X 10*3/uL (140-440); RBC 4.62 X 10*6/uL (4.10-5.20); RDW 16.1 % (11.5-14.5); WBC 9.38 X 10*3/uL (4.50-10.00)
[2022-05-30 19:14] LABS: ALT 18 U/L (8-44); AST 18 U/L (13-35); African American GFR (CKD) 92.6 (60.0-200.0); Albumin 4.6 g/dL (3.8-4.9); Alkaline Phosphatase 70 U/L (41-126); BUN/Creat Ratio 18.14 Ratio (12.00-20.00); Blood Urea Nitrogen 15.6 mg/dL (9.0-27.0); Calcium 10.1 mg/dL (8.7-10.3); Carbon Dioxide 27.8 mmol/L (20.0-27.5); Chloride 100 mmol/L (96-109); Chol/HDL Ratio 2.08 Ratio; Globulin 3.1 g/dL (1.6-3.3); Glucose 95 mg/dL (70-110); LDL Cholesterol,Calculated 59.7 mg/dL (0.0-131.0); Non-African American GFR(CKD) 79.9 (60.0-200.0); Potassium 3.7 mmol/L (3.5-5.5); Sodium 140 mmol/L (135-145); Total Protein 7.7 g/dL (6.2-8.2); VLDL Calculation 9.98 mg/dL (5.00-40.00)
== END | disposition home or self-care (01) ==
LOC: LABWHC1 11:28
PROVIDERS: ATTEND Family Medicine
DX: E11.9 Type 2 diabetes mellitus without complications (principal); E78.2 Mixed hyperlipidemia; E55.9 Vitamin D deficiency, unspecified; E53.8 Deficiency of other specified B group vitamins; M89.9 Disorder of bone, unspecified
CPT/HCPCS: 36415; 80053; 80061; 82043; 82306; 82570; 82607; 83036; 83970; 84439; 84443; 85025

== ENCOUNTER → 2022-06-14 | Outpatient (CLI) | payer BC, MEDICARE ==
--- NOTE | 2022-06-15 08:37 | MM ---
Reason for Exam: Screening (asymptomatic). Last mammogram was performed 1 year(s) and 1 month(s) ago. Patient History: Menarche at age 9. First Full-Term at age 18. Currently using Hormonal Contraceptives, beginning at age 15 for 20 years. 1997, Benign Excisional Biopsy on the left side. Last menstrual period: 05/26/2022 Risk Values: Beth 5 year model risk: 0.9%. NCI Lifetime model risk: 8.7%. Prior Study Comparison: 01/22/2018 Bilateral Screening Mammogram, [facility]. 03/22/2019 Bilateral Screening Mammogram, [facility]. 06/10/2021 Bilateral Screening Mammogram, [facility]. Tissue Density: There are scattered fibroglandular densities. Findings: Analyzed By CAD. Pattern appears symmetrical and stable. No suspicious groups of microcalcifications, spiculated or lobular masses, architectural distortion or other secondary signs of malignancy are mammographically apparent. Overall Assessment: Benign, BI-RAD 2 Management: Screening Mammogram of both breasts in 1 year. A negative mammogram report should not preclude additional follow up of suspicious palpable abnormalities. Patient should continue monthly self breast exam. A clinical breast exam by your physician is recommended on an annual basis and results should be correlated with mammographic findings. Electronically signed and approved by: Vasu Zamora D.O. Radiologis
== END | disposition home or self-care (01) ==
LOC: RADMAMWWP 11:09
PROVIDERS: ATTEND Obstetrics & Gynecology
DX: Z12.31 Encounter for screening mammogram for malignant neoplasm of breast (principal)
CPT/HCPCS: 77067

== ENCOUNTER → 2022-09-20 | Outpatient (CLI) | payer BC, MEDICARE ==
[2022-09-20 21:18] LABS: ALT 34 U/L (8-44); AST 26 U/L (13-35); Albumin 4.4 d/dL (3.8-4.9); Albumin/Globulin Ratio 1.57 Ratio (1.60-3.17); Alkaline Phosphatase 65 U/L (41-126); Blood Urea Nitrogen 11.3 mg/dL (9.0-27.0); Calcium 9.9 mg/dL (8.7-10.3); Chloride 104 mmol/L (96-109); Globulin 2.8 d/dL (1.6-3.3); Glucose 82 mg/dL (70-110); Magnesium 1.8 mg/dL (1.5-2.4); Phosphorus 3.8 mg/dL (2.4-5.1); Potassium 4.1 mmol/L (3.5-5.5); Sodium 140 mmol/L (135-145); Total Bilirubin 0.3 mg/dL (0.3-1.2); Total Protein 7.2 d/dL (6.2-8.2)
== END | disposition home or self-care (01) ==
LOC: LABWHC1 12:48
PROVIDERS: ATTEND Internal Medicine Endocrinology, Diabetes & Metabolism
DX: S42.92XD Fracture of left shoulder girdle, part unspecified, subsequent encounter for fracture with routine healing (principal); X58.XXXD Exposure to other specified factors, subsequent encounter
CPT/HCPCS: 36415; 80053; 82306; 83735; 83970; 84100; 84443

== ENCOUNTER → 2022-09-22 | Outpatient (CLI) | payer BC, MEDICARE ==
--- NOTE | 2022-09-22 15:33 | BD ---
EXAMINATION TYPE: Axial Bone Density DATE OF EXAM: 09/22/2022 CLINICAL HISTORY: 47 years old Female. ICD-10 CODE: Z79.52 CHR USE OF SYSTEMIC STEROIDS Height: 60 Weight: 175 FRAX RISK QUESTIONS: History of Fracture in Adulthood: yes left shoulder Secondary Osteoporosis: no Rheumatoid Arthritis: no RISK FACTORS HISTORY OF: Family History of Osteoporosis: yes, mother Active: yes Diet low in dairy products/other sources of calcium: yes Postmenopausal woman: no If Premenopausal, do you have irregular periods: no Lost more than 2 inches in height since high school: no MEDICATIONS: Prednisone or other steroids: yes How Lon month Additional Medications: yes Crohn's meds, hbp med, cholesterol, depression and anxiety meds , vit b12 , vit d , muscle relaxer, p ain meds, reflux, control, and inhaler EXAM MEASUREMENTS: Bone mineral densitometry was performed using the Metaresolver System. Bone mineral density as measured about the Lumbar spine is: ----- L1-L4(G/cm2): 1.370 T Score Values are as follows: ----- L1: 1.5 ----- L2: 0.7 ----- L3: 1.5 ----- L4: 2.2 ----- L1-L4: 1.6 Z Score Values are as follows: ----- L1: 0.6 ----- L2: -0.2 ----- L3: 0.6 ----- L4: 1.3 ----- L1-L4: 0.7 Bone mineral density baseline Bone mineral density about the R hip (g/cm2): 1.181 Bone mineral density about the L hip (g/cm2): 1.156 T Score values are as follows: -----R Neck: 0.4 -----L Neck: 0.1 -----R Total: 1.4 -----L Total: 1.2 Z Score values are as follows: -----R Neck: -0.1 -----L Neck: -0.5 -----R Total: 0.5 -----L Total: 0.3 Bone mineral density baseline FRAX%s: The graph provided illustrates a 2.4% chance for a major osteoporotic fx and a 0.0% chance fo r the hips probability for fx in 10 years time. IMPRESSION: Normal (Values between +1 and -1 indicate normal bone mass). Consider repeating this study in 5 year s or sooner if there is some new clinical indication. NOTE: T-SCORE=SD OF THE YOUNG ADULT MEAN.
== END | disposition home or self-care (01) ==
LOC: RADBDWWP 09:13
PROVIDERS: ATTEND Internal Medicine Endocrinology, Diabetes & Metabolism
DX: S42.92XD Fracture of left shoulder girdle, part unspecified, subsequent encounter for fracture with routine healing (principal); Z79.52 Long term (current) use of systemic steroids
CPT/HCPCS: 77080

== ENCOUNTER → 2022-12-30 | Outpatient (CLI) | payer BC, MEDICARE ==
--- NOTE | 2022-12-30 10:48 | MR ---
EXAMINATION TYPE: MR lumbar spine wo con DATE OF EXAM: 12/30/2022 COMPARISON: NONE HISTORY: Neck and back pain stiffness, LUE/BLE radiculopathy. TECHNIQUE: T1 and T2 axial and sagittal images of the lumbar spine are submitted. FINDINGS: There is no abnormal signal seen within the visualized spinal cord or paraspinal soft tissu es. At L1-2 there is no disc herniation or canal stenosis. No foraminal encroachment. At L2-3 there is no disc herniation or canal stenosis. No foraminal encroachment. At L3-4 there is circumferential disc bulging with hypertrophic change of the facets. No disc herniat ion or canal stenosis. No foraminal encroachment. At L4-5 there is broad-based disc protrusion or small herniation greater paracentrally and laterally to the left with mild right and moderate left foraminal encroachment. Hypertrophic changes and facet and ligamentum flavum contribute to mild central stenosis. At L5-S1 there is broad-based disc herniation facet arthropathy. Mild to moderate bilateral foraminal encroachment. No focal herniation. IMPRESSION: 1. A broad-based disc herniation greater paracentrally and laterally left L4-5. Mild right and modera te left foraminal protrusion. Mild canal stenosis. 2. Broad-based disc bulging L5-S1. [id number] bilateral foraminal protrusion. EXAMINATION TYPE: MR cervical spine wo con DATE OF EXAM: 12/30/2022 COMPARISON: NONE HISTORY: Neck and back pain stiffness, LUE/BLE radiculopathy. TECHNIQUE: T1 sagittal and coronal, T2 sagittal, and gradient echo axial views of the cervical spine are submitted. FINDINGS: At C2-3 there is no evidence of disc herniation or canal stenosis. No foraminal. At C3-4 there is mild central disc bulging. No foraminal or canal stenosis. At C4-5 there is central and right paracentral disc bulging or small protrusion. No canal stenosis. M ild right foraminal encroachment. At C5-6 there is mild posterior spondylosis. Mild uncovertebral joint hypertrophy and broad-based roland tral disc bulging without discrete herniation. Mild bilateral foraminal encroachment. At C6-7 there is a large broad-based central and right paracentral disc herniation with contact of th e anterior margin of the spinal cord. Moderate left and severe right-sided foraminal encroachment. Co uld not exclude a small area of abnormal signal within the spinal cord. At C7-T1 there is no disc herniation or canal stenosis. No foraminal IMPRESSION: 1. There is a large broad-based central right paracentral disc herniation at C6-C7 resulting in mild anterior impression spinal cord. Could not exclude a small amount of edema or abnormal signal within spinal cord. Mild compressive myelitis in the differential diagnosis. Referring clinician was notifi ed by telephone 10:45 AM 12/30/2022. 2. Disc bulging at C3-4, C4-5 without evidence of canal stenosis. 3. Bilateral thyroid nodule.
== END | disposition home or self-care (01) ==
LOC: RADMRIMAIN 08:51
DX: M48.061 Spinal stenosis, lumbar region without neurogenic claudication (principal); G89.29 Other chronic pain; M51.17 Intervertebral disc disorders with radiculopathy, lumbosacral region
CPT/HCPCS: 72141; 72148

== ENCOUNTER → 2023-06-28 | Outpatient (CLI) | payer BC, MEDICARE ==
--- NOTE | 2023-06-28 21:22 | US ---
EXAMINATION TYPE: US thyroid st tissue head/neck DATE OF EXAM: 06/28/2023 COMPARISON: NONE CLINICAL INDICATION: Female, 48 years old with history of E04.1 Thyroid nodule; possible nodule, not on medication GLAND SIZE: Right Lobe: 4.0 x 1.6 x 1.8 cm Overall Parenchyma: heterogeneous Left Lobe: 4.7 x 1.5 x 1.6 cm Overall Parenchyma: heterogeneous Isthmus Thickness: wnl cm NODULES RIGHT: # of nodules measured on right: multiple subcentimeter, measured largest 1. 0.8 X 0.7 x 0.7 cm, mid , solid or almost completely solid, hypoechoic nodule, which is wider th an tall, with smooth margins, without echogenic foci. Prior size: TELESALES REPRESENTATIVE LEFT: # of nodules measured on left: 0 ISTHMUS: # of nodules measured in the isthmus: 0 Bilateral neck scanned, no evidence of lymphadenopathy. IMPRESSION: 1. Subcentimeter thyroid nodules. Consider follow-up .
== END | disposition home or self-care (01) ==
LOC: RADUSWWP 13:40
PROVIDERS: ATTEND Family Medicine
DX: E04.2 Nontoxic multinodular goiter (principal)
CPT/HCPCS: 76536

== ENCOUNTER → 2023-10-10 | Outpatient (CLI) | payer BC, MEDICARE ==
[2023-10-10 15:57] LABS: Basophils # (A) 0.05 X 10*3/uL (0.00-0.10); Basophils % (A) 0.8 %; Eosinophils # (A) 0.22 X 10*3/uL (0.04-0.35); Eosinophils % (A) 3.4 %; HCT 40.5 % (37.2-46.3); HGB 12.9 g/dL (12.0-15.0); Lymphocytes % (A) 56.5 %; MCH 30.9 pg (27.0-32.0); MCHC 31.9 g/dL (32.0-37.0); MCV 97.1 FL (80.0-97.0); Mean Platelet Volume 10.6 FL (9.5-12.2); Monocytes # (A) 0.48 X 10*3/uL (0.20-1.00); Monocytes % (A) 7.3 %; NRBC Per 100 WBC 0 X 10*3/uL (0.00-0.01); Neutrophils # (A) 2.09 X 10*3/uL (1.80-7.70); Neutrophils % (A) 31.8 %; Platelet Count 309 X 10*3/uL (140-440); RBC 4.17 X 10*6/uL (4.10-5.20); WBC 6.55 X 10*3/uL (4.50-10.00)
[2023-10-10 16:15] LABS: ALT 8 U/L (8-44); AST 16 U/L (13-35); Albumin 4.2 g/dL (3.8-4.9); Albumin/Globulin Ratio 1.75 Ratio (1.60-3.17); Alkaline Phosphatase 47 U/L (41-126); Blood Urea Nitrogen 14.4 mg/dL (9.0-27.0); Calcium 9.4 mg/dL (8.7-10.3); Carbon Dioxide 23.4 mmol/L (21.6-31.8); Chloride 104 mmol/L (96-109); Globulin 2.4 g/dL (1.6-3.3); Glucose 96 mg/dL (70-110); Sodium 140 mmol/L (135-145); Total Bilirubin 0.2 mg/dL (0.3-1.2); Total Protein 6.6 g/dL (6.2-8.2)
== END | disposition home or self-care (01) ==
LOC: LABWHC1 09:04
PROVIDERS: ATTEND Internal Medicine Gastroenterology
DX: K50.80 Crohn's disease of both small and large intestine without complications (principal)
CPT/HCPCS: 36415; 80053; 85025

== ENCOUNTER 2023-11-16 19:15 | Emergency (ER) | payer BC, MEDICARE ==
[2023-11-16 19:37] VITALS: TEMP 98.2
--- NOTE | 2023-11-16 19:40 | ED ---
Nausea/Vomiting/Diarrhea HPI - General Chief complaint: Nausea/Vomiting/Diarrhea Stated complaint: vomiting Time Seen by Provider: 11/16/23 19:38 Source: patient, RN notes reviewed Mode of arrival: ambulatory Limitations: no limitations - History of Present Illness Initial comments: 48-year-old female with history of hypertension and diabetes and Crohn's presents emergency department chief complaint of diarrhea, nausea vomiting, chills over the past few days. She states that she also been feeling mildly congested with a cough as well. Patient denies urinary changes, hememesis, hematochezia or dark tarry stools. Patient is concerned and thinks that her hormones may be imbalance as she has been off of her hormonal oral contraceptive over the past month and she has been experiencing night sweats. Denies previous surgical abdominal history. - Related Data Home Medications Medication Instructions Recorded Confirmed Fluticasone Propionate [Flonase] 2 spray PO BID PRN 07/15/13 11/29/22 Loratadine [Claritin] 10 mg PO DAILY 07/15/13 11/29/22 hydroCHLOROthiazide [Hydrodiuril] 25 mg PO DAILY 07/15/13 11/29/22 Adalimumab [Humira Crohn's] 40 mg SQ Q14D 10/03/19 11/29/22 Cholecalciferol [Vitamin D3 (25 2,000 unit PO DAILY 10/03/19 11/29/22 Mcg = 1000 Iu)] Cyclobenzaprine [Flexeril] 5 mg PO HS PRN 10/03/19 11/29/22 Hydrocodone/Acetaminophen [[place] 1 tab PO BID PRN 10/03/19 11/29/22 10-325] Pantoprazole [Protonix] 20 mg PO DAILY 10/03/19 11/29/22 fluvoxaMINE [Luvox] 100 mg PO HS 10/03/19 11/29/22 metFORMIN HCL [Glucophage] 500 mg PO BID 10/03/19 11/29/22 Birthcontrol 1 tab PO QAM 11/25/22 11/29/22 Cyanocobalamin (Vitamin B-12) 1,000 mcg PO DAILY 11/25/22 11/29/22 [Vitamin B-12] Allergies Allergy/AdvReac Type Severity Reaction Status Date / Time lisinopril Allergy Swelling Verified 11/29/22 09:12 shellfish derived Allergy Itching Verified 11/29/22 09:12 ibuprofen [From Motrin IB] AdvReac Nausea Verified 11/29/22 09:12 Review of Systems ROS Statement: Those systems with pertinent positive or pertinent negative responses have been documented in the HPI. ROS Other: All systems not noted in ROS Statement are negative. Past Medical History Past Medical History: Diabetes Mellitus, GERD/Reflux, Hypertension, Muscul oskeletal Disorder Additional Past Medical History / Comment(s): HX CROHN'S, Bulging discs back,repeated bronchitis-tx w/ antibiotics and prednisone August and September History of Any Multi-Drug Resistant Organisms: None Reported Past Surgical History: Section, Orthopedic Surgery Additional Past Surgical History / Comment(s): BARBARA EYE LID SX, Facial laceration surgery. Colonoscopies, EGD. Lt shoulder surgery. Past Anesthesia/Blood Transfusion Reactions: Motion Sickness, Postoperative Nausea & Vomiting (PONV) Additional Past Anesthesia/Blood Transfusion Reaction / Comment(s): PONV after shoulder surgery (had a low K+ level pre-op) Past Psychological History: Anxiety, Depression, PTSD Smoking Status: Former smoker Past Alcohol Use History: None Reported Past Drug Use History: Marijuana - Past Family History Mother Family Medical History: CVA/TIA, Deep Vein Thrombosis (DVT) Father Family Medical History: Cancer Additional Family Medical History / Comment(s): prostate cancer General Exam - General Exam Comments Initial Comments: Visual Physical Exam Vital signs reviewed General: Well-appearing, nontoxic, no acute distress. Head: Normocephalic, atraumatic Eyes: PERRLA, EOMI ENT: Airway patent Chest: Nonlabored breathing Skin: No visual rash, normal skin tone Neuro: Alert and oriented 3 Musculoskeletal: No gross abnormalities Limitations: no limitations General appearance: alert, in no apparent distress Head exam: Present: atraumatic, normocephalic, normal inspection Eye exam: Present: normal appearance, PERRL, EOMI. Absent: scleral icterus, conjunctival injection, periorbital swelling ENT exam: Present: normal exam, mucous membranes moist Neck exam: Present: normal inspection. Absent: tenderness, meningismus, lymphadenopathy Respiratory exam: Present: normal lung sounds bilaterally. Absent: respiratory distress, wheezes, rales, rhonchi, stridor Cardiovascular Exam: Present: regular rate, normal rhythm, normal heart sounds. Absent: systolic murmur, diastolic murmur, rubs, gallop, clicks GI/Abdominal exam: Present: soft, tenderness (rid juan antonio-abdomen), normal bowel sounds. Absent: distended, guarding, rebound, rigid Extremities exam: Present: normal inspection, full ROM, normal capillary refill. Absent: tenderness, pedal edema, joint swelling, calf tenderness Back exam: Present: normal inspection Skin exam: Present: warm, dry, intact, normal color. Absent: rash Course Vital Signs 11/16/23 11/16/23 11/16/23 19:32 22:01 22:43 Temperature 98.2 F Pulse Rate 88 82 84 Respiratory 18 16 18 Rate Blood Pressure 146/81 123/81 124/80 O2 Sat by Pulse 100 99 97 Oximetry Medical Decision Making - Medical Decision Making Was pt. sent in by a medical professional or institution (, PA, MUSEUM SECURITY CHIEF, urgent care, hospital, or detention...) When possible be specific @ -No Did you speak to anyone other than the patient for history (EMS, parent, family, police, friend...)? What history was obtained from this source @ -No Did you review nursing and triage notes (agree or disagree)? Why? @ -I reviewed and agree with nursing and triage notes Were old charts reviewed (outside hosp., previous admission, EMS record, old EKG, old radiological studies, urgent care reports/EKG's, detention records)? Report findings @ -No old charts were reviewed Differential Diagnosis (chest pain, altered mental status, abdominal pain women, abdominal pain men, vaginal bleeding, weakness, fever, dyspnea, syncope, head ache, dizziness, GI bleed, back pain, seizure, CVA, palpatations, mental health, musculoskeletal)? @ -Differential Abdominal Pain Women: Appendicitis, Cholecystitis, diverticulosis, ischemic bowel, pancreatitis, hepatitis, UTI, gastroenteritis, AAA, incarcerated hernia, bowel obstruction, constipation, inflammatory bowel, hepatitis, peptic ulcer disease, splenic infarction, perforated viscus, vulvitis, ovarian torsion, PID, kidney stone, placenta abruption, this is not meant to be an all-inclusive list EKG interpreted by me (3pts min.). @ -None X-rays interpreted by me (1pt min.). @ -None done CT interpreted by me (1pt min.). @ -None done U/S interpreted by me (1pt. min.). @ -None done What testing was considered but not performed or refused? (CT, X-rays, U/S, labs)? Why? @ -None What meds were considered but not given or refused? Why? @ -None Did you discuss the management of the patient with other professionals (professionals i.e. , PA, MUSEUM SECURITY CHIEF, lab, RT, psych nurse, social media community manager, orange grower, teacher, emergency communications officer, case making machine operator)? Give summary @ -No Was smoking cessation discussed for >3mins.? @ -No Was critical care preformed (if so, how long)? @ -No Were there social determinants of health that impacted care today? How? (Homelessness, low income, unemployed, alcoholism, drug addiction, transportation, low edu. Level, literacy, decrease access to med. care, alf, rehab)? @ -No Was there de-escalation of care discussed even if they declined (Discuss DNR or withdrawal of care, Hospice)? DNR status @ -No What co-morbidities impacted this encounter? (DM, HTN, Smoking, COPD, CAD, Cancer, CVA, ARF, Chemo, Hep., AIDS, mental health diagnosis, sleep apnea, morbid obesity)? @ -None Was patient admitted / discharged? Hospital course, mention meds given and route, prescriptions, significant lab abnormalities, going to OR and other pertinent info. @ -discharged. 48-year-old female with nausea, vomiting, chills. Patient's vitals are stable upon arrival, abdomen is mildly tender to of the right side however patient states that she has chronic right-sided abdominal pain with her history of Crohn's. She is symptomatically treated with fluids and Toradol pending results of labs. She is in agreement with this plan. CBC, CMP, pancreatic enzymes within normal limits. On reevaluation, patient is asleep and upon waking states that she feels markedly better. There is minimal clinical concern for further intra-abdominal process at this time and patient is stable for discharge with close follow-up with primary care provider this week for further evaluation. All questions answered at bedside and strict return parameters discussed with the patient she is verbalized understanding. Case discussed with Dr. Baum Undiagnosed new problem with uncertain prognosis? @ -No Drug Therapy requiring intensive monitoring for toxicity (Heparin, Nitro, Insulin, Cardizem)? @ -No Were any procedures done? @ -No Diagnosis/symptom? @ -Nausea, vomiting, diarrhea Acute, or Chronic, or Acute on Chronic? @ -Acute Uncomplicated (without systemic symptoms) or Complicated (systemic symptoms)? @ -Uncomplicated Side effects of treatment? @ -No Exacerbation, Progression, or Severe Exacerbation? @ -No Poses a threat to life or bodily function? How? (Chest pain, [place], [place], pneumonia, PE, COPD, DKA, ARF, appy, cholecystitis, CVA, Diverticulitis, Homicidal, Suicidal, threat to staff... and all critical care pts) @ -No - Lab Data Result diagrams: 11/16/23 20:45 11/16/23 20:45 Lab Results 11/16/23 11/16/23 11/16/23 Range/Units 20:45 20:45 20:45 WBC 8.2 (3.8-10.6) k/uL RBC 4.52 (3.80-5.40) m/uL Hgb 13.9 (11.4-16.0) gm/dL Hct 41.6 (34.0-46.0) % MCV 91.9 (80.0-100.0) fL MCH 30.6 (25.0-35.0) pg MCHC 33.3 (31.0-37.0) g/dL RDW 14.3 (11.5-15.5) % Plt Count 333 (150-450) k/uL MPV 7.0 Neutrophils % 50 % Lymphocytes % 42 % Monocytes % 4 % Eosinophils % 2 % Basophils % 1 % Neutrophils # 4.1 (1.3-7.7) k/uL Lymphocytes # 3.4 (1.0-4.8) k/uL Monocytes # 0.3 (0-1.0) k/uL Eosinophils # 0.2 (0-0.7) k/uL Basophils # 0.0 (0-0.2) k/uL Sodium 139 (137-145) mmol/L Potassium 3.5 (3.5-5.1) mmol/L Chloride 104 (98-107) mmol/L Carbon Dioxide 26 (22-30) mmol/L Anion Gap 9 mmol/L BUN 12 (7-17) mg/dL Creatinine 0.75 (0.52-1.04) mg/dL Est GFR (CKD-EPI)AfAm >90 (>60 ml/min/1.73 sqM) Est GFR (CKD-EPI)NonAf >90 (>60 ml/min/1.73 sqM) Glucose 96 (74-99) mg/dL Plasma Lactic Acid Drew 1.0 (0.7-2.0) mmol/L Calcium 10.5 H (8.4-10.2) mg/dL Total Bilirubin 0.7 (0.2-1.3) mg/dL AST 52 H (14-36) U/L ALT 77 H (4-34) U/L Alkaline Phosphatase 61 (38-126) U/L Total Protein 7.5 (6.3-8.2) g/dL Albumin 4.7 (3.5-5.0) g/dL Amylase 72 (30-110) U/L Lipase 98 (23-300) U/L Urine Color Urine Appearance (Clear) Urine pH (5.0-8.0) Ur Specific [place] (1.001-1.035) Urine Protein (Negative) Urine Glucose (UA) (Negative) Urine Ketones (Negative) Urine Blood (Negative) Urine Nitrite (Negative) Urine Bilirubin (Negative) Urine Urobilinogen (<2.0) mg/dL Ur Leukocyte Esterase (Negative) Urine RBC (0-5) /hpf Urine WBC (0-5) /hpf Ur Squamous Epith Cells (0-4) /hpf Urine Bacteria (None) /hpf Urine Mucus (None) /hpf Influenza Type A (PCR) (Not Detectd) Influenza Type B (PCR) (Not Detectd) RSV (PCR) (Not Detectd) SARS-CoV-2 (PCR) (Not Detectd) 11/16/23 11/16/23 Range/Units 20:45 20:45 WBC (3.8-10.6) k/uL RBC (3.80-5.40) m/uL Hgb (11.4-16.0) gm/dL Hct (34.0-46.0) % MCV (80.0-100.0) fL MCH (25.0-35.0) pg MCHC (31.0-37.0) g/dL RDW (11.5-15.5) % Plt Count (150-450) k/uL MPV Neutrophils % % Lymphocytes % % Monocytes % % Eosinophils % % Basophils % % Neutrophils # (1.3-7.7) k/uL Lymphocytes # (1.0-4.8) k/uL Monocytes # (0-1.0) k/uL Eosinophils # (0-0.7) k/uL Basophils # (0-0.2) k/uL Sodium (137-145) mmol/L Potassium (3.5-5.1) mmol/L Chloride (98-107) mmol/L Carbon Dioxide (22-30) mmol/L Anion Gap mmol/L BUN (7-17) mg/dL Creatinine (0.52-1.04) mg/dL Est GFR (CKD-EPI)AfAm (>60 ml/min/1.73 sqM) Est GFR (CKD-EPI)NonAf (>60 ml/min/1.73 sqM) Glucose (74-99) mg/dL Plasma Lactic Acid Drew (0.7-2.0) mmol/L Calcium (8.4-10.2) mg/dL Total Bilirubin (0.2-1.3) mg/dL AST (14-36) U/L ALT (4-34) U/L Alkaline Phosphatase (38-126) U/L Total Protein (6.3-8.2) g/dL Albumin (3.5-5.0) g/dL Amylase (30-110) U/L Lipase (23-300) U/L Urine Color Light Yellow Urine Appearance Cloudy H (Clear) Urine pH 6.0 (5.0-8.0) Ur Specific [place] 1.021 (1.001-1.035) Urine Protein Trace H (Negative) Urine Glucose (UA) Negative (Negative) Urine Ketones Negative (Negative) Urine Blood Moderate H (Negative) Urine Nitrite Negative (Negative) Urine Bilirubin Negative (Negative) Urine Urobilinogen <2.0 (<2.0) mg/dL Ur Leukocyte Esterase Moderate H (Negative) Urine RBC 8 H (0-5) /hpf Urine WBC 8 H (0-5) /hpf Ur Squamous Epith Cells 9 H (0-4) /hpf Urine Bacteria Rare H (None) /hpf Urine Mucus Few H (None) /hpf Influenza Type A (PCR) Not Detected (Not Detectd) Influenza Type B (PCR) Not Detected (Not Detectd) RSV (PCR) Not Detected (Not Detectd) SARS-CoV-2 (PCR) Not Detected (Not Detectd) Disposition Clinical Impression: Nausea and vomiting, Diarrhea Disposition: HOME SELF-CARE Condition: Good Instructions (If sedation given, give patient instructions): Acute Nausea and Vomiting (ED) Additional Instructions: Return to the emergency department for any new or worsening symptoms. Is patient prescribed a controlled substance at d/c from ED?: No Referrals: Diamante Snider MD [Primary Care Provider] - 1-2 days Time of Disposition: 22:14
[2023-11-16 21:07] LABS: Basophils % (A) 1 %; Eosinophils # (A) 0.2 k/uL (0-0.7); Eosinophils % (A) 2 %; HCT 41.6 % (34.0-46.0); HGB 13.9 gm/dL (11.4-16.0); Lymphocytes # (A) 3.4 k/uL (1.0-4.8); Lymphocytes % (A) 42 %; MCH 30.6 pg (25.0-35.0); MCHC 33.3 g/dL (31.0-37.0); MCV 91.9 fL (80.0-100.0); Monocytes # (A) 0.3 k/uL (0-1.0); Monocytes % (A) 4 %; Neutrophils # (A) 4.1 k/uL (1.3-7.7); Neutrophils % (A) 50 %; Platelet Count 333 k/uL (150-450); RBC 4.52 m/uL (3.80-5.40); RDW 14.3 % (11.5-15.5); WBC 8.2 k/uL (3.8-10.6)
[2023-11-16] MEDS: SODIUM CHLORIDE 0.9% 1,000 ML IV STA (21:09)
[2023-11-16] MEDS: KETOROLAC 15 MG/ML 1 ML VIAL IVP STA (21:10)
[2023-11-16 21:15] LABS: ALT 77 U/L (4-34); AST 52 U/L (14-36); African American GFR (CKD) >90 (>60 ml/min/1.73 sqM); Albumin 4.7 g/dL (3.5-5.0); Alkaline Phosphatase 61 U/L (38-126); Amylase 72 U/L (30-110); Anion Gap 9 mmol/L; Blood Urea Nitrogen 12 mg/dL (7-17); Calcium 10.5 mg/dL (8.4-10.2); Carbon Dioxide 26 mmol/L (22-30); Chloride 104 mmol/L (98-107); Glucose 96 mg/dL (74-99); Lipase 98 U/L (23-300); Non-African American GFR(CKD) >90 (>60 ml/min/1.73 sqM); Potassium 3.5 mmol/L (3.5-5.1); Sodium 139 mmol/L (137-145); Total Bilirubin 0.7 mg/dL (0.2-1.3); Total Protein 7.5 g/dL (6.3-8.2)
[2023-11-16 21:20] LABS: Appearance,Urine Cloudy (Clear); Bacteria,Urine Rare /hpf; Bilirubin,Urine Negative (Negative); Blood,Urine Moderate (Negative); Color,Urine Light Yellow; Glucose,Urine (UA) Negative (Negative); Ketones,Urine Negative (Negative); Leukocyte Esterase,Urine Moderate (Negative); Mucus,Urine Few /hpf; Nitrite,Urine Negative (Negative); Protein,Urine Trace (Negative); RBC,Urine 8 /hpf (0-5); Specific Gravity,Urine 1.021 (1.001-1.035); Squamous Epithelial Cell,Urine 9 /hpf (0-4); Urobilinogen,Urine <2.0 mg/dL (<2.0); WBC,Urine 8 /hpf (0-5)
[2023-11-16 22:43] VITALS: BP 124/80; PULSE 84; RESP 18
== END 2023-11-16 22:53 | disposition home or self-care (01) ==
LOC: EC 19:15
CPT/HCPCS: 36415; 80053; 81001; 82150; 83605; 83690; 85025; 87636; 96374; 99284

== ENCOUNTER → 2024-03-22 | Outpatient (CLI) | payer BC, MEDICARE ==
--- NOTE | 2024-03-22 10:35 | MM ---
Reason for Exam: Screening (asymptomatic). Last mammogram was performed 1 year(s) and 9 month(s) ago. Patient History: Menarche at age 9. First Full-Term at age 18. Patient has history of breast feeding. Currently using Hormonal Contraceptives, beginning at age 15 for 20 years. 1998, Benign Excisional Biopsy on the left side. Risk Values: Beth 5 year model risk: 1.1%. NCI Lifetime model risk: 8.8%. Prior Study Comparison: 03/22/2019 Bilateral Screening Mammogram, [facility]. 06/10/2021 Bilateral Screening Mammogram, [facility]. 06/14/2022 Bilateral MG screening mammo w CAD, [facility]. Tissue Density: The breasts are almost entirely fatty. Findings: Analyzed By CAD. Right breast: There is no suspicious group of microcalcifications or new suspicious mass. Benign-appearing calcifications right breast. Left breast: There is no suspicious group of microcalcifications or new suspicious mass. Benign-appearing calcifications left breast. Overall Assessment: Benign, BI-RAD 2 Management: Screening Mammogram of both breasts in [address] [facility] will attempt to contact patient to return for supplemental views and ultrasound if indicated. Patient should continue monthly self-breast exams. A clinical breast exam by your physician is recommended on an annual basis. This exam should not preclude additional follow-up of suspicious palpable abnormalities. Note on Beth scores and lifetime risk: 1. A Beth score greater than 3% is considered moderate risk. If this is the case, consider specialist referral to assess eligibility for a risk reducing agent. 2. If overall lifetime risk for the development of breast cancer is 20% or higher, the patient may qualify for future screening with alternating mammogram and breast MRI. [facility], , 03/22/2024 10:32 AM. Electronically signed and approved by: Giovanni Beltran DO
== END | disposition home or self-care (01) ==
LOC: RADMAMWWP 09:38
PROVIDERS: ATTEND Family Medicine
DX: Z12.31 Encounter for screening mammogram for malignant neoplasm of breast (principal); R92.343 Mammographic extreme density, bilateral breasts
CPT/HCPCS: 77063; 77067

== ENCOUNTER → 2024-04-10 | Outpatient (CLI) | payer BC, MEDICARE ==
[2024-04-10 16:00] LABS: Chol/HDL Ratio 2.11 Ratio; LDL Cholesterol,Calculated 57.7 mg/dL (0.0-131.0); VLDL Calculation 11.74 mg/dL (5.00-40.00)
[2024-04-10 17:00] LABS: ALT 7 U/L (8-44); AST 16 U/L (13-35); Albumin/Globulin Ratio 1.54 Ratio (1.60-3.17); Alkaline Phosphatase 48 U/L (41-126); BUN/Creat Ratio 11.89 Ratio (12.00-20.00); Blood Urea Nitrogen 10.7 mg/dL (9.0-27.0); Carbon Dioxide 20.6 mmol/L (21.6-31.8); Chloride 106 mmol/L (96-109); Globulin 2.6 g/dL (1.6-3.3); Glucose 93 mg/dL (70-110); HCT 38.7 % (37.2-46.3); HGB 12.9 g/dL (12.0-15.0); MCH 30.4 pg (27.0-32.0); MCHC 33.3 g/dL (32.0-37.0); MCV 91.3 FL (80.0-97.0); Mean Platelet Volume 10.3 FL (9.5-12.2); NRBC Per 100 WBC 0 X 10*3/uL (0.00-0.01); Platelet Count 284 X 10*3/uL (140-440); Potassium 4.4 mmol/L (3.5-5.5); RBC 4.24 X 10*6/uL (4.10-5.20); RDW 15.9 % (11.5-14.5); Sodium 137 mmol/L (135-145); Total Bilirubin 0.3 mg/dL (0.3-1.2); Total Protein 6.6 g/dL (6.2-8.2); WBC 8.72 X 10*3/uL (4.50-10.00)
[2024-04-10 17:01] LABS: Basophils # (A) 0.04 X 10*3/uL (0.00-0.10); Basophils % (A) 0.5 %; Eosinophils # (A) 0.33 X 10*3/uL (0.04-0.35); Eosinophils % (A) 3.8 %; Lymphocytes # (A) 4.31 X 10*3/uL (0.90-5.00); Lymphocytes % (A) 49.4 %; Monocytes # (A) 0.59 X 10*3/uL (0.20-1.00); Monocytes % (A) 6.8 %; Neutrophils # (A) 3.42 X 10*3/uL (1.80-7.70); Neutrophils % (A) 39.2 %
== END | disposition home or self-care (01) ==
LOC: LABWHC1 08:37
PROVIDERS: ATTEND Family Medicine
DX: Z00.00 Encounter for general adult medical examination without abnormal findings (principal); E11.65 Type 2 diabetes mellitus with hyperglycemia; E78.2 Mixed hyperlipidemia; K50.80 Crohn's disease of both small and large intestine without complications
CPT/HCPCS: 36415; 80053; 80061; 82043; 82570; 83036; 84443; 85025

== ENCOUNTER → 2024-07-04 | Outpatient (CLI) | payer BC, MEDICARE ==
--- NOTE | 2024-07-04 10:21 | US ---
EXAMINATION TYPE: US thyroid st tissue head/neck DATE OF EXAM: 07/04/2024 COMPARISON: US CLINICAL INDICATION: Female, 49 years old with history of E04.1 Thyroid nodule; F/U TECHNIQUE: Grayscale and color Doppler imaging of the thyroid gland. FINDINGS: GLAND SIZE: Right Lobe: 4.7 x 1.7 x 2.0 cm Overall Parenchyma: heterogeneous Left Lobe: 4.8 x 1.3 x 1.8 cm Overall Parenchyma: heterogeneous Isthmus Thickness: 0.3 cm NODULES RIGHT: # of nodules measured on right: 1 1. 0.8 X 0.6 x 0.7 cm, mid lateral, solid or almost completely solid, hypoechoic nodule, which is w ider than tall, with smooth margins, without echogenic foci. TR 4. Prior size: 0.8 x 0.6 x 0.7 cm LEFT: # of nodules measured on left: 1 1. 0.9 X 0.5 x 0.8 cm, mid lateral, solid or almost completely solid, hypoechoic nodule, which is w ider than tall, with smooth margins, without echogenic foci. TR 4. Prior size: 1.3 x 0.6 x 0.7 cm ISTHMUS: # of nodules measured in the isthmus: 1 1. 0.8 X 0.5 x 0.6 cm solid or almost completely solid, hypoechoic nodule, which is wider than tall , with smooth margins, without echogenic foci. TR 4. Prior size: Not visualized on prior 2017 ACR TI-RADS LEVEL: Bilateral neck scanned, no evidence of lymphadenopathy. Sub-centimeter nodules, new nodule within ist hmus. IMPRESSION: 1. Moderately suspicious nodules. Highest TI-RADS level nodule reported: 2017 ACR TI-RADS LEVEL: TI-RADS 4 - Moderately Suspicious: Follow if > 1 cm, FNA if > 1.5 cm TI-RADS assessment score and recommendation for follow-up based on appropriate scoring and treatment protocols. TR3: If nodule size is ? 2.5 cm, FNA is recommended. If nodule size is ? 1.5 cm, follow-up imaging at 1, 3, and 5 years is recommended. TR4: If nodule size is ? 1.5 cm, FNA is recommended. If nodule size is ? 1.0 cm, follow-up imaging at 1, 2, 3, and 5 years is recommended. TR5: If nodule size is ? 1.0 cm, FNA is recommended. If nodule size is ? 0.5 cm, annual follow-up for up to 5 years is recommended. [email or web address] [facility], , 07/04/2024 10:19 AM
== END | disposition home or self-care (01) ==
LOC: RADUSWWP 09:54
PROVIDERS: ATTEND Family Medicine
DX: E04.2 Nontoxic multinodular goiter (principal)
CPT/HCPCS: 76536

== ENCOUNTER → 2024-07-22 | Outpatient (CLI) | payer OTHER ==
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
== END | disposition home or self-care (01) ==
LOC: RADMRIMAIN 21:45
PROVIDERS: ATTEND Family Medicine
DX: G44.311 Acute post-traumatic headache, intractable (principal); J34.89 Other specified disorders of nose and nasal sinuses
CPT/HCPCS: 70553; A9585

== ENCOUNTER → 2024-08-02 | Outpatient (CLI) | payer OTHER ==
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
== END | disposition home or self-care (01) ==
LOC: RADXRMAIN 09:12
PROVIDERS: ATTEND Psychiatry & Neurology Neurology
DX: R94.39 Abnormal result of other cardiovascular function study (principal); M47.816 Spondylosis without myelopathy or radiculopathy, lumbar region; M43.16 Spondylolisthesis, lumbar region; V89.9XXD Person injured in unspecified vehicle accident, subsequent encounter
CPT/HCPCS: 72114